=== PATIENT | male | born 1955 | race Caucasian/White ===

== ENCOUNTER → 2023-06-01 15:36 | Outpatient (BNVA) | payer MEDICARE, MEDICAID, SELFPAY | PROVIDERS: Family Provider Student in an Organized Health Care Education/Training Program; PCP Family Medicine; Referring Provider Family Medicine; Visit Provider Orthopaedic Surgery | DX: M54.10 Radiculopathy, site unspecified (principal); M41.50 Other secondary scoliosis, site unspecified; M43.16 Spondylolisthesis, lumbar region | CPT/HCPCS: 72110; 99204 ==

== ENCOUNTER 2023-06-27 16:39 | Outpatient (CLI) | payer MEDICARE, MEDICAID, SELFPAY ==
--- NOTE | 2023-06-27 16:45 | MR_ITS ---
WS: [id number] MRI LUMBAR SPINE NONCONTRAST TECHNIQUE: Sagittal T1, T2 and STIR imaging. Axial T1 and T2 imaging. CLINICAL INFORMATION: lumbr pain COMPARISON: MRI 2016 FINDINGS: Lumbar scoliosis convex RIGHT progressed compared to the prior MRI in 2016. Progressed disc space narrowing throughout the lumbar spine with progressed retrolisthesis L2 on L3 and L3 on L4. Pr ogressed central canal stenosis. L1-L2: Mild disc bulging with narrowing of the subarticular recess bilaterally. Mild RIGHT foraminal narrowing. Mild facet arthropathy. L2-L3: Progressed retrolisthesis with mild disc bulging. Impingement LEFT subarticular recess with mi ld central canal stenosis. Moderate facet arthropathy. Severe LEFT and mild RIGHT foraminal narrowing . L3-L4: Mild disc bulge with moderate central canal stenosis. Moderate to severe LEFT and mild to mode rate RIGHT foraminal narrowing with bilateral foraminal protrusions. Moderate facet arthropathy. Impi ngement LEFT subarticular recess. L4-L5: Mild disc bulging with moderate central canal stenosis. Crowding of the cauda equina nerve mariann tlets. Moderate facet arthropathy. Severe RIGHT and mild LEFT foraminal narrowing. Redundancy of the cauda equina nerve rootlets. L5-S1: Mild disc bulge with osteophytic ridging. Mild facet arthropathy. Foramen are patent. Small bi lateral facet effusions. Visualized pelvic bony structures: Normal. Paravertebral soft tissues: Normal. IMPRESSION: 1. Progressed lumbar scoliosis with progressed multilevel degenerative disc disease. Retrolisthesis L2 on L3 and L3 on L4 is progressed. 2. Progressed central canal stenosis moderate at L3-L4 and L4-L5 with crowding of the cauda equina n erve rootlets. 3. Mild central canal stenosis L2-3 with impingement on the LEFT subarticular recess. 4. LEFT subarticular protrusion L3-4 impinges the LEFT L4 nerve root. 5. Moderate to severe foraminal narrowing worse at LEFT L2-3, LEFT L3-4, and RIGHT L4-5. 6. Mild central canal stenosis in the cervical spine on the career agent imaging C3-C6 with reversal of the normal cervical lordosis.
== END 2023-06-27 16:40 | disposition home or self-care (01) ==
PROVIDERS: PCP Family Medicine; Visit Provider Orthopaedic Surgery
DX: M51.36 Other intervertebral disc degeneration, lumbar region (principal); M48.061 Spinal stenosis, lumbar region without neurogenic claudication; M48.02 Spinal stenosis, cervical region
CPT/HCPCS: 72148

== ENCOUNTER → 2023-07-25 13:57 | Outpatient (BNVA) | payer MEDICARE, MEDICAID, SELFPAY | PROVIDERS: PCP Family Medicine; Visit Provider Physician Assistant | DX: M41.50 Other secondary scoliosis, site unspecified (principal); M51.36 Other intervertebral disc degeneration, lumbar region; M48.062 Spinal stenosis, lumbar region with neurogenic claudication | CPT/HCPCS: 99213 ==

== ENCOUNTER → 2023-09-26 13:22 | Outpatient (BNVA) | payer MEDICARE, MEDICAID, SELFPAY | PROVIDERS: PCP Family Medicine; Visit Provider Orthopaedic Surgery | DX: M48.062 Spinal stenosis, lumbar region with neurogenic claudication (principal) | CPT/HCPCS: 99214 ==